=== PATIENT | female | born 1955 | race Caucasian/White ===

== ENCOUNTER 2016-09-14 19:47 | Observation (INO) | payer OTHER ==
[~2016-09-14] VITALS: Wt 75.2 kg
[2016-09-14] MEDS ORDERED: CRESTOR 10MG10 MG PO (19:54)
[2016-09-14] MEDS ORDERED: PRINIVIL5 MG PO (19:54)
[2016-09-14] MEDS ORDERED: ZYRTEC ALLERGY10 MG PO (19:55)
[2016-09-14] MEDS ORDERED: ZANTAC 150MG T150 MG PO (19:55)
[2016-09-14] MEDS ORDERED: PAXIL CR37.5 MG PO (19:55)
[2016-09-14] MEDS ORDERED: PROAIR HFA0.09 MG/AC IH (19:56)
[2016-09-14 20:30] LABS: BASO # 0.1 (0.0-0.2); BASO % 0.7 % (0.0-2.0); EOS # 0.3 (0.0-0.7); EOS % 2.8 % (0-4.0); GRAN # 5.4 (1.4-6.5); GRAN % 56.8 % (42.2-75.2); HEMOGLOBIN 13.6 g/dl (12.5-16.0); LYMPH % 31.4 % (20.0-51.0); MEAN CELL VOLUME 98 fl (80.0-100.0); MEAN CORPUSCULAR HEMOGLOBIN 33 pg (27.0-31.0); MEAN CORPUSCULAR HGB CONC 33 g/dl (33.0-37.0); MEAN PLATELET VOLUME 9.9 fl (7.4-10.4); MONO # 0.7 (0.1-0.6); MONO % 7.7 % (1.7-9.3); PLATELET COUNT 240 K/mm3 (130-400); RED BLOOD COUNT 4.17 M/mm3 (4.10-5.30); WHITE BLOOD COUNT 9.4 K/mm3 (4.8-10.8)
[2016-09-14 20:43] LABS: ALBUMIN 4.4 gm/dL (3.5-5.0); BILIRUBIN,TOTAL 0.5 mg/dL (0.0-1.0); CALCIUM 9.3 mg/dL (8.4-10.2); CREATININE, serum 0.57 mg/dL (0.52-1.25); POTASSIUM 3.7 mmol/L (3.4-5.0)
[2016-09-14 20:54] LABS: TROPONIN-I 0.02 ng/mL (0.000-0.034)
[2016-09-14 21:08] LABS: PROTHROMBIN TIME 10.5 SECONDS (9.7-12.8)
[2016-09-14 21:11] LABS: PARTIAL THROMBOPLASTIN TIME 33.3 SECONDS (26.0-37.0)
[2016-09-14] MEDS ORDERED: DESYREL 50MG50 MG PO (22:46)
[2016-09-14] MEDS ORDERED: MELATONIN5 M1 PO (22:48)
[2016-09-15] VITALS (164 sets, daily range): BP systolic 99–138; BP diastolic 53–83; PULSE 58–102; TEMP 94–98.4; O2SAT 89–99
[2016-09-15 12:54] LABS: HEMATOCRIT 39.4 % (37.0-47.0); MEAN CELL VOLUME 97 fl (80.0-100.0); MEAN CORPUSCULAR HEMOGLOBIN 32 pg (27.0-31.0); MEAN CORPUSCULAR HGB CONC 33 g/dl (33.0-37.0); MEAN PLATELET VOLUME 9.6 fl (7.4-10.4); PLATELET COUNT 231 K/mm3 (130-400); RED BLOOD COUNT 4.05 M/mm3 (4.10-5.30); REDCELL DISTRIBUTION WIDTH-CV 12.9 % (11.5-14.5); WHITE BLOOD COUNT 6.3 K/mm3 (4.8-10.8)
[2016-09-15 12:55] LABS: CREATININE, serum 0.49 mg/dL (0.52-1.25)
[2016-09-15 13:00] LABS: PARTIAL THROMBOPLASTIN TIME 33.2 SECONDS (26.0-37.0)
[2016-09-15 13:05] LABS: INR 1.1 (0.8-3.0); PROTHROMBIN TIME 11.7 SECONDS (9.7-12.8)
[2016-09-16] VITALS (298 sets, daily range): BP systolic 90–124; BP diastolic 53–80; PULSE 58–75; TEMP 98.1–98.3; O2SAT 88–99
[2016-09-16 05:49] LABS: BASO # 0.1 (0.0-0.2); BASO % 0.6 % (0.0-2.0); EOS # 0.3 (0.0-0.7); GRAN # 5.5 (1.4-6.5); GRAN % 66.7 % (42.2-75.2); HEMATOCRIT 39.6 % (37.0-47.0); HEMOGLOBIN 12.8 g/dl (12.5-16.0); LYMPH # 1.8 (1.2-3.4); LYMPH % 21.9 % (20.0-51.0); MEAN CELL VOLUME 99 fl (80.0-100.0); MEAN CORPUSCULAR HEMOGLOBIN 32 pg (27.0-31.0); MEAN CORPUSCULAR HGB CONC 32 g/dl (33.0-37.0); MEAN PLATELET VOLUME 9.6 fl (7.4-10.4); MONO # 0.6 (0.1-0.6); MONO % 7.2 % (1.7-9.3); PLATELET COUNT 213 K/mm3 (130-400); REDCELL DISTRIBUTION WIDTH-CV 13.1 % (11.5-14.5); WHITE BLOOD COUNT 8.3 K/mm3 (4.8-10.8)
[2016-09-16 06:01] LABS: CALCIUM 8.6 mg/dL (8.4-10.2); CREATININE, serum 0.48 mg/dL (0.52-1.25); POTASSIUM 3.8 mmol/L (3.4-5.0)
[2016-09-16] MEDS ORDERED: PLAVIX 75MG TAB75 MG PO (07:22)
[2016-09-16] MEDS ORDERED: ASPIRIN E.C. 8181 MG PO (07:23)
== END 2016-09-16 10:53 | disposition home or self-care (01) ==
LOC: COL.ER 19:47 → MEDICAL 21:34 → IMCU 21:34
PROVIDERS: Internal Medicine Interventional Cardiology; Physician Assistant
DX: I25.10 Atherosclerotic heart disease of native coronary artery without angina pectoris (principal); I73.9 Peripheral vascular disease, unspecified; M79.605 Pain in left leg; M79.604 Pain in right leg; F17.210 Nicotine dependence, cigarettes, uncomplicated; I10 Essential (primary) hypertension; R73.03 Prediabetes; E78.00 Pure hypercholesterolemia, unspecified
CPT/HCPCS: C1725; C1760; C1769; C1874; C9600; G0378; J0583; J2250; J3010; Q9967